=== PATIENT | female | born 1975 | race Caucasian/White ===

== ENCOUNTER → 2019-12-28 | Day surgery (SDC) | payer OTHER ==
[2019-12-24 16:55] LABS: BASOPHIL % 1.6 % (0-2)
[2019-12-24 16:59] LABS: ALBUMIN 3.1 g/dL (3.4-5.0); ALKALINE PHOSPHATASE 94 U/L (46-116); ALT/SGPT 36 U/L (14-59); AST/SGOT 10 U/L (15-37); BILIRUBIN TOTAL 0.22 mg/dL (0.20-1.00); CALCIUM 8.5 mg/dL (8.5-10.1); CARBON DIOXIDE 24.7 mmol/L (21-32); CHLORIDE SERUM 104 mmol/L (98-107); CREATININE SERUM 0.9 mg/dL (0.6-1.0); GFR1 > 60 mL/min; GLUCOSE SERUM 105 mg/dL (74-106); POTASSIUM SERUM 3.6 mmol/L (3.5-5.1); SODIUM SERUM 137 mmol/L (136-145); TOTAL PROTEIN, SERUM 7.1 g/dL (6.4-8.2)
[2019-12-24 17:00] LABS: PLATELET COUNT 505 x10^3mcL (130-400); RED CELL DISTRIBUTION WIDTH 17.8 % (11.5-14.5)
[~2019-12-28] VITALS: Ht 160 cm; Wt 90.7 kg
[2019-12-28 13:50] VITALS: BP 137/85
[2019-12-28 19:30] VITALS: BP 114/63
== END | disposition home or self-care (01) ==
LOC: GI 13:17 → DS 13:17 → OR 15:00 → GI 15:00 → MU 17:45 → DS 12-29 07:43
PROVIDERS: ATTEND Urology
DX: T83.192A Other mechanical complication of indwelling ureteral stent, initial encounter (principal); E66.01 Morbid (severe) obesity due to excess calories; Z68.35 Body mass index [BMI] 35.0-35.9, adult; Z20.828 Contact with and (suspected) exposure to other viral communicable diseases; Y83.8 Other surgical procedures as the cause of abnormal reaction of the patient, or of later complication, without mention of misadventure at the time of the procedure
CPT/HCPCS: C1758; C1769; G0378; J0330; J0696; J1170; J2250; J2405; J2704; J2710; J3010; J3490; J7030; J7120; Q9967; U0003

== ENCOUNTER 2020-01-06 06:39 | Day surgery (SDC) | payer OTHER, SELFPAY ==
[2020-01-04 17:49] LABS: CALCIUM 8.8 mg/dL (8.5-10.1); CHLORIDE SERUM 105 mmol/L (98-107); CREATININE SERUM 0.9 mg/dL (0.6-1.0); GFR1 > 60 mL/min; GLUCOSE SERUM 110 mg/dL (74-106); POTASSIUM SERUM 3.5 mmol/L (3.5-5.1); SODIUM SERUM 140 mmol/L (136-145)
[2020-01-04 17:50] LABS: BASOPHIL % 0.6 % (0-2); PLATELET COUNT 535 x10^3mcL (130-400); RED CELL DISTRIBUTION WIDTH 17.1 % (11.5-14.5)
[~2020-01-06] VITALS: Ht 160 cm; Wt 90.3 kg
[2020-01-06 07:01] VITALS: BP 115/72
[2020-01-06 18:23] VITALS: BP 123/67
== END 2020-01-06 18:50 | disposition home or self-care (01) ==
LOC: DS 06:39 → OR 07:30 → DS 18:50
PROVIDERS: ATTEND Urology
DX: T83.192A Other mechanical complication of indwelling ureteral stent, initial encounter (principal); E66.01 Morbid (severe) obesity due to excess calories; Z68.35 Body mass index [BMI] 35.0-35.9, adult; Y83.8 Other surgical procedures as the cause of abnormal reaction of the patient, or of later complication, without mention of misadventure at the time of the procedure
CPT/HCPCS: C1769; C2625; J0696; J3010; Q9967

== ENCOUNTER 2020-02-21 17:46 | Inpatient (IN) | payer OTHER ==
[~2020-02-21] VITALS: Ht 157.5 cm; Wt 105.7 kg
[2020-02-21 19:55] VITALS: BP 176/89; Ht 157.5 cm; Wt 105.7 kg
[2020-02-21 21:40] LABS: BASOPHIL % 0.2 % (0.2-1.3)
[2020-02-21 21:44] LABS: CALCIUM 8.7 mg/dL (8.5-10.1); CARBON DIOXIDE 23.8 mmol/L (21-32); CHLORIDE SERUM 105 mmol/L (98-107); CREATININE SERUM 0.9 mg/dL (0.6-1.0); GFR1 > 60 mL/min; GLUCOSE SERUM 141 mg/dL (74-106); POTASSIUM SERUM 3.8 mmol/L (3.5-5.1); SODIUM SERUM 142 mmol/L (136-145)
[2020-02-21 21:48] LABS: ALBUMIN 3.5 g/dL (3.4-5.0); ALKALINE PHOSPHATASE 111 U/L (46-116); ALT/SGPT 23 U/L (14-59); AST/SGOT 12 U/L (15-37); BILIRUBIN TOTAL 0.3 mg/dL (0.20-1.00); LIPASE 86 IU/L (73-393); TOTAL PROTEIN, SERUM 7.7 g/dL (6.4-8.2)
[2020-02-21 22:00] LABS: RED CELL DISTRIBUTION WIDTH 16.8 % (12.3-17.7)
[2020-02-21 22:01] LABS: PLATELET COUNT 527 x10^3mcL (179-408)
[2020-02-21 22:40] LABS: rbc morphology (normal/abnorm) NORMAL (NORMAL)
[2020-02-22 10:47] LABS: UA SPECIFIC GRAVITY >=1.030 (1.005-1.035); microscopic required? YES; urine erythrocyte 3+ (NEGATIVE)
== END 2020-02-22 04:51 | disposition left against medical advice (07) | DRG 463 ==
LOC: ED 17:46 → MU 02-22 00:18
PROVIDERS: Emergency Medicine; ADMIT Hospitalist; ATTEND Hospitalist
DX: N13.6 Pyonephrosis (principal); Z53.29 Procedure and treatment not carried out because of patient's decision for other reasons
CPT/HCPCS: G0378; J0696